=== PATIENT | male | born 1975 | race African-American/Black ===

== ENCOUNTER 2016-12-21 08:58 | Emergency (ER) | payer MEDICAID ==
[~2016-12-21] VITALS: Ht 177.8 cm; Wt 94.1 kg
[~2016-12-21 08:58] MED LIST: AMOX500T2; BENA20TA3 PO; IBUP-1510; MUCINEX
[2016-12-21 09:04] VITALS: BP 137/100
== END 2016-12-21 09:56 | disposition home or self-care (01) ==
LOC: ER 09:28
DX: S39.012A Strain of muscle, fascia and tendon of lower back, initial encounter (principal); I10 Essential (primary) hypertension; Z88.5 Allergy status to narcotic agent; X58.XXXA Exposure to other specified factors, initial encounter; Y93.B2 Activity, push-ups, pull-ups, sit-ups; Y92.018 Other place in single-family (private) house as the place of occurrence of the external cause
CPT/HCPCS: 99283

== ENCOUNTER 2016-12-23 14:07 | Emergency (ER) | payer MEDICAID ==
[~2016-12-23] VITALS: Ht 177.8 cm; Wt 94.0 kg
[2016-12-23 14:15] VITALS: BP 141/86
== END 2016-12-23 18:52 | disposition left against medical advice (07) ==
LOC: ER 14:19
DX: F41.9 Anxiety disorder, unspecified (principal); Z53.21 Procedure and treatment not carried out due to patient leaving prior to being seen by health care provider

== ENCOUNTER 2016-12-24 06:19 | Emergency (ER) | payer MEDICAID ==
[~2016-12-24] VITALS: Ht 177.8 cm; Wt 208.0 kg
[2016-12-24 08:07] LABS: CLARITY URINE CLEAR (CLEAR); COLOR URINE YELLOW (YELLOW); GLUCOSE URINE 3+ (NEGATIVE); KETONES URINE 2+ (NEGATIVE); LEUKOCYTE ESTERASE URINE NEGATIVE (NEGATIVE); NITRITE URINE NEGATIVE (NEGATIVE); OCCULT BLOOD URINE NEGATIVE (NEGATIVE); PROTEIN URINE NEGATIVE (NEGATIVE); SPECIFIC GRAVITY URINE 1.032 (1.005-1.030); UROBILINOGEN URINE 0.2 E.U./dL (0.2-1.0)
[2016-12-24 08:09] LABS: BASOPHILS % 0.8 % (0.0-2.0); EOSINOPHILS % 0.9 % (0.0-5.0); HEMATOCRIT. 45.1 % (42.0-52.0); HEMOGLOBIN. 14.9 g/dL (14.0-18.0); LYMPHOCYTES % 27.6 % (20.0-50.0); MEAN CORPUSCULAR HEMOGLOBIN 26.4 pg (28.0-32.0); MEAN CORPUSCULAR VOLUME 80.2 fL (80.0-94.0); MEAN PLATELET VOLUME 9.9 fl (7.4-10.4); MONOCYTES % 7.7 % (2.0-8.0); PLATELET 233 x1000/uL (130-400); RED BLOOD CELL COUNT 5.63 mill/uL (4.7-6.1); RED CELL DISTRIBUTION WIDTH 13.3 % (11.6-14.6); WHITE BLOOD COUNT 4.8 x1000/uL (4.5-11.0)
[2016-12-24 08:17] LABS: ANION GAP 17; CALCIUM 9.1 mg/dL (8.5-10.1); CARBON DIOXIDE 27 mEq/L (21-32); CHLORIDE 98 mEq/L (98-107); INDEX HEMOLYSI 1 (1-3); INDEX ICTERIC 1 (1-4); INDEX LIPEMIC 1 (1-3); UREA NITROGEN BLOOD 24 mg/dL (7-21)
[2016-12-24 08:19] LABS: eGFR > 60 mL/min (>60)
[2016-12-24 08:35] LABS: RBC URINE NONE SEEN /hpf (0-2); WBC URINE 0-2 /hpf (0-2)
[2016-12-24 08:36] LABS: BACTERIA URINE TRACE; SQUAMOUS EPITHELIAL CELL URINE NONE SEEN /lpf (RARE/1+)
[2016-12-24] MEDS ORDERED: SODIUM CHLORIDE 0.9% 1,000 ML IV ONE ×2 (08:49)
[2016-12-24 11:12] VITALS: BP 131/87
== END 2016-12-24 11:15 | disposition home or self-care (01) ==
LOC: ER 06:24
DX: R73.9 Hyperglycemia, unspecified (principal); R63.4 Abnormal weight loss; R00.2 Palpitations; I10 Essential (primary) hypertension
CPT/HCPCS: 36415; 80048; 81001; 85025; 93005; 96360; 96361; 99285; J7030; Z7610

== ENCOUNTER 2017-04-09 04:59 | Emergency (ER) | payer MEDICAID ==
[~2017-04-09] VITALS: Ht 177.8 cm; Wt 91.0 kg
[2017-04-09] MEDS ORDERED: DIPHENHYDRAMINE 50MG CAPSULE PO ONE (06:30)
[2017-04-09] MEDS ORDERED: FAMOTIDINE 20MG TABLET PO ONE (06:30)
[2017-04-09 09:33] VITALS: BP 146/103
== END 2017-04-09 09:33 | disposition home or self-care (01) ==
LOC: ER 04:59
DX: R22.0 Localized swelling, mass and lump, head (principal); I10 Essential (primary) hypertension; Z88.6 Allergy status to analgesic agent
CPT/HCPCS: 99283; Q0163

== ENCOUNTER 2017-04-23 21:18 | Emergency (ER) | payer MEDICAID ==
[~2017-04-23] VITALS: Ht 177.8 cm; Wt 90.9 kg
[2017-04-23 22:36] LABS: BASOPHILS % 0.9 % (0.0-2.0); EOSINOPHILS % 1.6 % (0.0-5.0); HEMOGLOBIN. 14.5 g/dL (14.0-18.0); LYMPHOCYTES % 32.6 % (20.0-50.0); MEAN CORPUSCULAR HEMOGLOBIN 26.4 pg (28.0-32.0); MEAN CORPUSCULAR VOLUME 80.2 fL (80.0-94.0); MEAN PLATELET VOLUME 9.1 fl (7.4-10.4); MONOCYTES % 6.8 % (2.0-8.0); NEUTROPHILS % 58.1 % (40.0-76.0); PLATELET 213 x1000/uL (130-400); RED BLOOD CELL COUNT 5.48 mill/uL (4.7-6.1); RED CELL DISTRIBUTION WIDTH 15.4 % (11.6-14.6)
[2017-04-23 22:38] LABS: CHLORIDE 106 mEq/L (98-107)
[2017-04-23 22:42] LABS: CARBON DIOXIDE 25 mEq/L (21-32)
[2017-04-23 23:17] VITALS: BP 134/72
== END 2017-04-23 23:29 | disposition home or self-care (01) ==
LOC: ER 21:44
DX: E11.649 Type 2 diabetes mellitus with hypoglycemia without coma (principal); E11.40 Type 2 diabetes mellitus with diabetic neuropathy, unspecified; I16.0 Hypertensive urgency; Z88.5 Allergy status to narcotic agent
CPT/HCPCS: 36415; 80053; 82962; 85025; 99284; Z7610

== ENCOUNTER 2017-07-09 11:15 | Emergency (ER) | payer MEDICAID, OTHER ==
[~2017-07-09] VITALS: Ht 177.8 cm; Wt 86.0 kg
[~2017-07-09 11:15] MED LIST changes: -IBUP-1510; +IBUP-2030
[2017-07-09 12:18] LABS: EOSINOPHILS % 0.9 % (0.0-5.0); HEMOGLOBIN. 15.3 g/dL (14.0-18.0); LYMPHOCYTES % 29.4 % (20.0-50.0); MEAN CORPUSCULAR HEMOGLOBIN 26.9 pg (28.0-32.0); MEAN CORPUSCULAR VOLUME 80.8 fL (80.0-94.0); MEAN PLATELET VOLUME 8.7 fl (7.4-10.4); MONOCYTES % 7.4 % (2.0-8.0); NEUTROPHILS % 61.3 % (40.0-76.0); PLATELET 221 x1000/uL (130-400); RED BLOOD CELL COUNT 5.69 mill/uL (4.7-6.1); RED CELL DISTRIBUTION WIDTH 14.7 % (11.6-14.6)
[2017-07-09 12:36] LABS: CARBON DIOXIDE 31 mEq/L (21-32); CHLORIDE 103 mEq/L (98-107); INR 1.1; PARTIAL THROMBOPLASTIN TIME 27.3 sec (23.4-31.0); PROTHROMBIN TIME 11.3 sec (9.4-11.6)
[2017-07-09 12:37] LABS: TROPONIN I < 0.02 ng/mL (0.00-0.04)
[2017-07-09 15:00] VITALS: BP 145/97
== END 2017-07-09 15:01 | disposition home or self-care (01) ==
LOC: ER 11:15
DX: F41.9 Anxiety disorder, unspecified (principal); I10 Essential (primary) hypertension; R00.2 Palpitations; E11.9 Type 2 diabetes mellitus without complications; Z88.5 Allergy status to narcotic agent
CPT/HCPCS: 36415; 71010; 80053; 83690; 83735; 83880; 84443; 84484; 85025; 85610; 85730; 93005; 99285; Z7610

== ENCOUNTER 2017-08-30 07:13 | Emergency (ER) | payer OTHER ==
[~2017-08-30] VITALS: Ht 177.8 cm; Wt 91.0 kg
[2017-08-30 08:29] VITALS: BP 127/89
== END 2017-08-30 08:48 | disposition home or self-care (01) ==
LOC: ER 07:13
DX: H00.014 Hordeolum externum left upper eyelid (principal); I10 Essential (primary) hypertension; E11.9 Type 2 diabetes mellitus without complications; Z88.5 Allergy status to narcotic agent
CPT/HCPCS: 99282; Z7610

== ENCOUNTER 2017-10-11 05:00 | Emergency (ER) | payer SELFPAY ==
[~2017-10-11] VITALS: Ht 177.8 cm; Wt 82.0 kg
[2017-10-11 05:05] VITALS: BP 133/92
== END 2017-10-11 08:12 | disposition left against medical advice (07) ==
LOC: ER 05:00
DX: H02.849 Edema of unspecified eye, unspecified eyelid (principal); Z53.21 Procedure and treatment not carried out due to patient leaving prior to being seen by health care provider

== ENCOUNTER 2018-11-13 06:18 | Emergency (ER) | payer BC ==
[~2018-11-13] VITALS: Ht 180.3 cm; Wt 100.0 kg
[~2018-11-13 06:18] MED LIST changes: +BENA20TA10 PO; -BENA20TA3 PO
[2018-11-13] MEDS ORDERED: CYCLOBENZAPRINE 10MG TABLET PO ONE (10:00)
[2018-11-13] MEDS ORDERED: KETOROLAC 30MG/ML VIAL IM ONE (10:00)
[2018-11-13 11:30] VITALS: BP 123/78
== END 2018-11-13 11:44 | disposition home or self-care (01) ==
LOC: ER 06:18
DX: J40 Bronchitis, not specified as acute or chronic (principal)
CPT/HCPCS: 71045; 96372; 99283; J1885

== ENCOUNTER 2019-06-15 14:47 | Emergency (ER) | payer BC, MEDICAID ==
[~2019-06-15] VITALS: Ht 180.3 cm; Wt 86.0 kg
[2019-06-15] MEDS ORDERED: SODIUM CHLORIDE 0.9% 1,000 ML IV ONE (15:48)
[2019-06-15] MEDS ORDERED: MAGNESIUM/ALUMINUM HYDROXIDE/SIMETHICONE 30ML UDC PO STA (15:48)
[2019-06-15] MEDS ORDERED: ONDANSETRON HCL 4MG/2ML INJ IV STA (15:48)
[2019-06-15 16:30] LABS: BASOPHILS % 0.5 % (0.0-2.0); EOSINOPHILS % 0.3 % (0.0-5.0); HEMATOCRIT. 45.6 % (42.0-52.0); LYMPHOCYTES % 22.8 % (20.0-50.0); MEAN CORPUSCULAR HEMOGLOBIN 26.6 pg (28.0-32.0); MONOCYTES % 5.5 % (2.0-8.0); NEUTROPHILS % 70.9 % (40.0-76.0); PLATELET 231 x1000/uL (130-400); RED BLOOD CELL COUNT 5.63 mill/uL (4.7-6.1); RED CELL DISTRIBUTION WIDTH 14.5 % (11.6-14.6)
[2019-06-15 16:32] LABS: CHLORIDE 101 mEq/L (98-107)
[2019-06-15 16:34] LABS: PROTHROMBIN TIME 10.5 sec (9.6-11.0)
[2019-06-15 18:39] VITALS: BP 121/75
== END 2019-06-15 18:43 | disposition home or self-care (01) ==
LOC: ER 14:47
DX: R10.13 Epigastric pain (principal); N28.1 Cyst of kidney, acquired; K76.0 Fatty (change of) liver, not elsewhere classified; I10 Essential (primary) hypertension; E11.9 Type 2 diabetes mellitus without complications; Z79.899 Other long term (current) drug therapy
CPT/HCPCS: 36415; 76700; 80053; 83690; 84484; 85025; 85610; 93005; 96361; 96374; 99284; J2405; J7030

== ENCOUNTER 2020-01-14 11:46 | Emergency (ER) | payer BC, MEDICAID, OTHER ==
[~2020-01-14] VITALS: Ht 180.3 cm; Wt 95.5 kg
[2020-01-14] MEDS ORDERED: AMLO5TAB88 PO (12:04)
[2020-01-14] MEDS ORDERED: METF-815 PO (12:04)
[2020-01-14] MEDS ORDERED: HYDR25TA PO (12:04)
[2020-01-14] MEDS ORDERED: INSU100I24 SQ (12:04)
[2020-01-14] MEDS ORDERED: VISCOUS LIDOCAINE 2% 15 ML UDC PO STA (12:48)
[2020-01-14] MEDS ORDERED: DICYCLOMINE 10 MG/5 ML ORAL SYR PO STA (12:48)
[2020-01-14] MEDS ORDERED: MAGNESIUM/ALUMINUM HYDROXIDE/SIMETHICONE 30ML UDC PO STA (12:48)
[2020-01-14 13:30] LABS: BASOPHILS % 0.6 % (0.0-2.0); CHLORIDE 101 mEq/L (98-107); EOSINOPHILS % 0.6 % (0.0-5.0); HEMATOCRIT. 49.8 % (42.0-52.0); HEMOGLOBIN. 16.6 g/dL (14.0-18.0); LYMPHOCYTES % 32.9 % (20.0-50.0); MEAN CORPUSCULAR HEMOGLOBIN 26.2 pg (28.0-32.0); MEAN CORPUSCULAR VOLUME 78.5 fL (80.0-94.0); MEAN PLATELET VOLUME 9.1 fl (7.4-10.4); MONOCYTES % 6.6 % (2.0-8.0); NEUTROPHILS % 59.3 % (40.0-76.0); PLATELET 248 x1000/uL (130-400); RED BLOOD CELL COUNT 6.34 mill/uL (4.7-6.1)
[2020-01-14 15:32] VITALS: BP 135/91
== END 2020-01-14 15:59 | disposition home or self-care (01) ==
LOC: ER 12:26
DX: K21.9 Gastro-esophageal reflux disease without esophagitis (principal); I10 Essential (primary) hypertension; E11.9 Type 2 diabetes mellitus without complications
CPT/HCPCS: 36415; 71045; 80053; 83880; 84484; 85025; 93005; 99285

== ENCOUNTER 2020-05-23 09:07 | Emergency (ER) | payer BC, OTHER, MEDICAID ==
[~2020-05-23] VITALS: Ht 177.8 cm; Wt 100.0 kg
[~2020-05-23 09:07] MED LIST changes: +AMLO5TAB88 PO; -AMOX500T2; -BENA20TA10 PO; +HYDR25TA PO; -IBUP-2030; +INSU100I24 SQ; +METF-815 PO; -MUCINEX
[2020-05-23 09:08] VITALS: BP 134/104
[2020-05-23] MEDS ORDERED: BACITRACIN ZINC OINT UDPKT TOP ONE (10:15)
== END 2020-05-23 11:03 | disposition home or self-care (01) ==
LOC: ER 09:07
DX: L03.011 Cellulitis of right finger (principal); I10 Essential (primary) hypertension; E11.9 Type 2 diabetes mellitus without complications
CPT/HCPCS: 10060; 99283

== ENCOUNTER 2020-06-13 07:55 | Emergency (ER) | payer BC, OTHER, MEDICAID | END 2020-06-13 08:06 | disposition left against medical advice (07) | LOC: ER 07:55 | DX: Z53.21 Procedure and treatment not carried out due to patient leaving prior to being seen by health care provider (principal) ==

== ENCOUNTER 2020-07-09 07:56 | Emergency (ER) | payer BC, OTHER, MEDICAID ==
[~2020-07-09] VITALS: Ht 180.3 cm; Wt 100.0 kg
[2020-07-09 08:08] VITALS: BP 131/96
== END 2020-07-09 08:56 | disposition home or self-care (01) ==
LOC: ER 07:56
DX: K08.89 Other specified disorders of teeth and supporting structures (principal); E11.9 Type 2 diabetes mellitus without complications; I10 Essential (primary) hypertension
CPT/HCPCS: 99282

== ENCOUNTER 2020-08-08 16:19 | Emergency (ER) | payer BC, OTHER, MEDICAID ==
[~2020-08-08] VITALS: Ht 185.4 cm; Wt 100.0 kg
[2020-08-08 16:22] VITALS: BP 167/113
[2020-08-08] MEDS ORDERED: SODIUM CHLORIDE 0.9% 1,000 ML IV ONE (18:45)
== END 2020-08-08 20:19 | disposition left against medical advice (07) ==
LOC: ER 16:19
DX: Z53.21 Procedure and treatment not carried out due to patient leaving prior to being seen by health care provider (principal); I49.9 Cardiac arrhythmia, unspecified
CPT/HCPCS: 82962; 93005; 99281; J7030

== ENCOUNTER 2020-11-28 15:42 | Inpatient (IN) | payer BC, OTHER, MEDICAID ==
[~2020-11-28] VITALS: Ht 177.8 cm; Wt 93.4 kg
[~2020-11-28 15:42] MED LIST changes: -METF-815 PO; +METF-873 PO
[2020-11-28 16:25] LABS: BASOPHILS % 0.9 % (0.0-2.0); EOSINOPHILS % 0.9 % (0.0-5.0); HEMATOCRIT. 47.2 % (42.0-52.0); HEMOGLOBIN. 15.5 g/dL (14.0-18.0); LYMPHOCYTES % 31.7 % (20.0-50.0); MEAN CORPUSCULAR HEMOGLOBIN 25.9 pg (28.0-32.0); MEAN CORPUSCULAR VOLUME 79.2 fL (80.0-94.0); MEAN PLATELET VOLUME 9.1 fl (7.4-10.4); MONOCYTES % 6.6 % (2.0-8.0); NEUTROPHILS % 59.9 % (40.0-76.0); PLATELET 241 x1000/uL (130-400); RED BLOOD CELL COUNT 5.97 mill/uL (4.7-6.1); RED CELL DISTRIBUTION WIDTH 14.2 % (11.6-14.6)
[2020-11-28 16:34] LABS: CHLORIDE 102 mEq/L (98-107)
[2020-11-28] MEDS ORDERED: SODIUM CHLORIDE 0.9% 1,000 ML IV ONE (17:00)
[2020-11-28] MEDS ORDERED: CEFTRIAXONE 1 G PREMIX 50 ML IV ONE (18:00)
[2020-11-28] MEDS ORDERED: AZITHROMYCIN 500 MG in DEXT 5% WATER 250 ML IV SCH (18:30)
[2020-11-28] MEDS ORDERED: CLONIDINE 0.1MG TABLET PO PRN (18:45)
[2020-11-28] MEDS ORDERED: LORAZEPAM 2MG/ML CPJ IV PRN (18:45)
[2020-11-28] MEDS ORDERED: HYDROCODONE/ACETAMINOPHEN 5/325MG TABLET PO PRN (18:45)
[2020-11-28] MEDS ORDERED: MAGNESIUM/ALUMINUM HYDROXIDE/SIMETHICONE 30ML UDC PO PRN (18:45)
[2020-11-28] MEDS ORDERED: DIPHENHYDRAMINE 50MG/ML VIAL IV PRN (18:45)
[2020-11-28] MEDS ORDERED: DOCUSATE SODIUM 100MG CAPSULE PO PRN (18:45)
[2020-11-28] MEDS ORDERED: ACETAMINOPHEN 325MG TABLET PO PRN (18:45)
[2020-11-28] MEDS ORDERED: DEXTROSE 50% WATER 50ML SYRINGE IV PRN (18:45)
[2020-11-28] MEDS ORDERED: ONDANSETRON HCL 4MG/2ML INJ IV PRN (18:45)
[2020-11-28] MEDS ORDERED: ALBUTEROL 6.7GM HFA INHALER ORI PRN (18:45)
[2020-11-28] MEDS ORDERED: GUAIFENESIN 200MG/10ML SUGAR FREE UDC PO PRN (18:45)
[2020-11-28] MEDS ORDERED: ENOXAPARIN 40MG/0.4ML SYR SUBCUT SCH (20:00)
[2020-11-28] MEDS: BLOOD SUGAR DIAGNOSTIC STRIP TEST SCH (20:16)
[2020-11-28] MEDS: INSULIN LISPRO 100 UNITS/ML SUBCUT SCH (20:24)
[2020-11-28] MEDS: SODIUM CHLORIDE 0.9% INJ 3ML FLUSH IVF SCH (22:03)
[2020-11-29 02:30] VITALS: BP 162/100
[2020-11-29] MEDS: SODIUM CHLORIDE 0.9% INJ 3ML FLUSH IVF SCH ×2 (02:45→13:23)
[2020-11-29 02:53] VITALS: BP 162/100
[2020-11-29 06:00] VITALS: BP 124/84
[2020-11-29] MEDS: BLOOD SUGAR DIAGNOSTIC STRIP TEST SCH ×3 (07:40→17:49)
[2020-11-29 08:00] VITALS: BP 131/90
[2020-11-29 08:21] LABS: BASOPHILS % 0.6 % (0.0-2.0); EOSINOPHILS % 0.9 % (0.0-5.0); HEMATOCRIT. 49.2 % (42.0-52.0); HEMOGLOBIN. 16.1 g/dL (14.0-18.0); LYMPHOCYTES % 31.4 % (20.0-50.0); MEAN CORPUSCULAR HEMOGLOBIN 25.9 pg (28.0-32.0); MEAN CORPUSCULAR VOLUME 79.2 fL (80.0-94.0); MEAN PLATELET VOLUME 8.9 fl (7.4-10.4); MONOCYTES % 7.2 % (2.0-8.0); NEUTROPHILS % 59.9 % (40.0-76.0); PLATELET 248 x1000/uL (130-400); RED BLOOD CELL COUNT 6.22 mill/uL (4.7-6.1); RED CELL DISTRIBUTION WIDTH 13.9 % (11.6-14.6)
[2020-11-29] MEDS: INSULIN LISPRO 100 UNITS/ML SUBCUT SCH ×3 (08:28→17:54)
[2020-11-29 08:32] LABS: CHLORIDE 102 mEq/L (98-107)
[2020-11-29] MEDS ORDERED: CEFTRIAXONE 1 G PREMIX 50 ML IV SCH (09:00)
[2020-11-29] MEDS ORDERED: AZITHROMYCIN 500 MG in DEXT 5% WATER 250 ML IV SCH (09:00)
[2020-11-29] MEDS ORDERED: REGADENOSON 0.4 MG/5 ML IV NR (11:15)
[2020-11-29] MEDS ORDERED: AMLODIPINE 2.5MG TABLET PO NR (11:15)
[2020-11-29] MEDS ORDERED: ASPIRIN 81MG EC TABLET PO SCH (11:15)
[2020-11-29 12:00] VITALS: BP 137/94
[2020-11-29] MEDS ORDERED: CEFTRIAXONE 1,000 MG in DEXTROSE 5% WATER 50 ML IV SCH (13:00)
[2020-11-29] MEDS ORDERED: AZITHROMYCIN 500MG in DEXTROSE 5% WATER 250ML IV SCH (14:00)
[2020-11-29 16:00] VITALS: BP 117/78
[2020-11-29] MEDS ORDERED: ATORVASTATIN CALCIUM 10MG TABLET PO SCH (21:00)
[2020-11-30] MEDS ORDERED: AMLODIPINE 2.5MG TABLET PO SCH (09:00)
== END 2020-11-29 19:15 | disposition left against medical advice (07) | DRG 313 ==
LOC: ER 15:42 → 7WST 17:53 → EDBEDREQTM 17:57 → EDBEDREQ 17:57 → ENRESERV 11-29 01:36 → 8WST 11-29 10:46
PROVIDERS: ADMIT Internal Medicine; ATTEND Internal Medicine
DX: R07.89 Other chest pain (principal); J18.9 Pneumonia, unspecified organism; I10 Essential (primary) hypertension; E11.65 Type 2 diabetes mellitus with hyperglycemia; E78.5 Hyperlipidemia, unspecified; Z60.2 Problems related to living alone; R00.0 Tachycardia, unspecified; Z20.822 Contact with and (suspected) exposure to COVID-19; Z53.29 Procedure and treatment not carried out because of patient's decision for other reasons; Z79.899 Other long term (current) drug therapy; Z79.4 Long term (current) use of insulin; Z87.891 Personal history of nicotine dependence; Z80.1 Family history of malignant neoplasm of trachea, bronchus and lung; Z83.3 Family history of diabetes mellitus; Z88.6 Allergy status to analgesic agent; Z79.82 Long term (current) use of aspirin
CPT/HCPCS: 36415; 71045; 80053; 82962; 83036; 83880; 84484; 85025; 85379; 93005; 99285; J0456; J0696; J1650; J1815; J2060; J7040; J7060; U0003

== ENCOUNTER 2021-02-03 11:18 | Emergency (ER) | payer BC, OTHER, MEDICAID ==
[~2021-02-03] VITALS: Ht 177.8 cm; Wt 92.0 kg
[2021-02-03] MEDS ORDERED: IBUP-2029 MT (11:46)
[2021-02-03] MEDS ORDERED: AMOX-494 MT (11:46)
[2021-02-03 11:58] VITALS: BP 157/97
== END 2021-02-03 11:59 | disposition home or self-care (01) ==
LOC: ER 11:24
DX: K11.20 Sialoadenitis, unspecified (principal); K04.7 Periapical abscess without sinus; I10 Essential (primary) hypertension; Z79.899 Other long term (current) drug therapy; Z79.4 Long term (current) use of insulin
CPT/HCPCS: 99283

== ENCOUNTER 2021-03-27 08:01 | Emergency (ER) | payer BC, OTHER, MEDICAID ==
[~2021-03-27] VITALS: Ht 177.8 cm; Wt 95.0 kg
[~2021-03-27 08:01] MED LIST changes: +AMOX-494 MT; +IBUP-2029 MT
[2021-03-27 08:52] LABS: BASOPHILS % 0.9 % (0.0-2.0); EOSINOPHILS % 1.7 % (0.0-5.0); HEMATOCRIT. 46.4 % (42.0-52.0); HEMOGLOBIN. 15.8 g/dL (14.0-18.0); LYMPHOCYTES % 37.6 % (20.0-50.0); MEAN CORPUSCULAR HEMOGLOBIN 27.1 pg (28.0-32.0); MEAN CORPUSCULAR VOLUME 79.9 fL (80.0-94.0); MEAN PLATELET VOLUME 9.4 fl (7.4-10.4); MONOCYTES % 8.2 % (2.0-8.0); NEUTROPHILS % 51.6 % (40.0-76.0); PLATELET 249 x1000/uL (130-400); RED CELL DISTRIBUTION WIDTH 13.8 % (11.6-14.6)
[2021-03-27 08:53] LABS: CHLORIDE 106 mEq/L (98-107)
[2021-03-27] MEDS ORDERED: CLIN300C12 MT (10:12)
[2021-03-27 10:19] VITALS: BP 125/90
== END 2021-03-27 11:33 | disposition home or self-care (01) ==
LOC: ER 08:01
DX: S02.69XA Fracture of mandible of other specified site, initial encounter for closed fracture (principal); X58.XXXA Exposure to other specified factors, initial encounter; Y93.89 Activity, other specified; Y92.89 Other specified places as the place of occurrence of the external cause; I10 Essential (primary) hypertension; E11.9 Type 2 diabetes mellitus without complications
CPT/HCPCS: 36415; 70486; 80053; 82962; 84484; 85025; 93005; 99285; Z7610

== ENCOUNTER 2021-08-30 06:20 | Emergency (ER) | payer BC, OTHER, MEDICAID ==
[~2021-08-30] VITALS: Ht 177.8 cm; Wt 97.0 kg
[~2021-08-30 06:20] MED LIST changes: +CLIN300C12 MT
[2021-08-30] MEDS ORDERED: BENZONATATE 100MG CAPSULE PO ONE (07:30)
[2021-08-30] MEDS ORDERED: BENZ-16 PO (08:25)
[2021-08-30 09:08] VITALS: BP 125/65
== END 2021-08-30 09:08 | disposition home or self-care (01) ==
LOC: ER 06:20
DX: B34.9 Viral infection, unspecified (principal); I10 Essential (primary) hypertension; E11.9 Type 2 diabetes mellitus without complications; Z88.6 Allergy status to analgesic agent; Z20.822 Contact with and (suspected) exposure to COVID-19
CPT/HCPCS: 71045; 82962; 87426; 87804; 99284

== ENCOUNTER 2021-09-29 07:16 | Emergency (ER) | payer BC, MEDICAID ==
[~2021-09-29] VITALS: Ht 177.8 cm; Wt 205.0 kg
[~2021-09-29 07:16] MED LIST changes: +BENZ-16 PO
[2021-09-29 10:28] VITALS: BP 136/78
== END 2021-09-29 10:28 | disposition home or self-care (01) ==
LOC: ER 07:16
DX: R05.9 Cough, unspecified (principal); Z20.822 Contact with and (suspected) exposure to COVID-19; E11.9 Type 2 diabetes mellitus without complications; I10 Essential (primary) hypertension; Z79.899 Other long term (current) drug therapy
CPT/HCPCS: 71045; 87426; 99284

== ENCOUNTER 2021-10-21 14:16 | Emergency (ER) | payer BC, OTHER ==
[~2021-10-21] VITALS: Ht 180.3 cm; Wt 96.0 kg
[2021-10-21 14:18] VITALS: BP 120/89
[2021-10-21] MEDS ORDERED: NITROGLYCERIN 0.4MG TABLET SL SL PRN (15:00)
[2021-10-21] MEDS ORDERED: ASPIRIN 81MG TABLET PO ONE (15:00)
[2021-10-21 15:26] LABS: BASOPHILS % 0.7 % (0.0-2.0); EOSINOPHILS % 0.4 % (0.0-5.0); HEMATOCRIT. 43.9 % (42.0-52.0); HEMOGLOBIN. 14.4 g/dL (14.0-18.0); LYMPHOCYTES % 32.1 % (20.0-50.0); MEAN CORPUSCULAR HEMOGLOBIN 25.4 pg (28.0-32.0); MEAN CORPUSCULAR VOLUME 77.8 fL (80.0-94.0); MONOCYTES % 7.3 % (2.0-8.0); NEUTROPHILS % 59.5 % (40.0-76.0); PLATELET 373 x1000/uL (130-400); RED BLOOD CELL COUNT 5.64 mill/uL (4.7-6.1); RED CELL DISTRIBUTION WIDTH 13.9 % (11.6-14.6)
[2021-10-21 15:28] LABS: CHLORIDE 104 mEq/L (98-107)
== END 2021-10-21 18:42 | disposition left against medical advice (07) ==
LOC: ER 14:16 → CANBEDREQ 10-22 10:58
DX: R07.2 Precordial pain (principal); R00.0 Tachycardia, unspecified; I10 Essential (primary) hypertension; E11.9 Type 2 diabetes mellitus without complications; Z86.16 Personal history of COVID-19; Z79.4 Long term (current) use of insulin; Z79.899 Other long term (current) drug therapy
CPT/HCPCS: 36415; 71045; 80053; 83880; 84484; 85025; 85379; 93005; 99285

== ENCOUNTER 2021-12-26 15:43 | Emergency (ER) | payer BC, OTHER ==
[~2021-12-26] VITALS: Ht 154.9 cm; Wt 90.0 kg
[2021-12-26 15:48] VITALS: BP 141/99
== END 2021-12-26 16:00 | disposition left against medical advice (07) ==
LOC: ER 15:43
DX: Z53.21 Procedure and treatment not carried out due to patient leaving prior to being seen by health care provider (principal)

== ENCOUNTER 2024-09-24 23:51 | Emergency (ER) | payer OTHER, MEDICAID ==
[~2024-09-24] VITALS: Ht 175.3 cm; Wt 85.0 kg
[~2024-09-24 23:51] MED LIST changes: +CLIN-194 MT; -CLIN300C12 MT; +METF-1149 PO; -METF-873 PO
[2024-09-24 23:52] VITALS: BP 148/102; PULSE 110; RESP 18; TEMP 99.1; O2SAT 99
== END 2024-09-25 01:25 | disposition left against medical advice (07) ==
LOC: ER 23:51
DX: E11.65 Type 2 diabetes mellitus with hyperglycemia (principal); E86.0 Dehydration; F10.90 Alcohol use, unspecified, uncomplicated; I10 Essential (primary) hypertension; Z79.4 Long term (current) use of insulin; Z88.5 Allergy status to narcotic agent; Y90.9 Presence of alcohol in blood, level not specified
CPT/HCPCS: 99283